=== PATIENT | male | born 1955 | race Caucasian/White ===

== ENCOUNTER 2016-06-11 23:26 | Observation (INO) | payer MEDICARE ==
[2016-06-11 23:53] VITALS: BMI 30.7
--- NOTE | 2016-06-12 00:04 | EDPRACDOC ---
- General Information Stated Complaint: CHEST PAIN Time Seen by Provider: 06/11/16 23:39 Information Source: Patient Mode of Arrival: Ambulance Home Medications: Home Medications Atorvastatin Calcium [Lipitor] 40 mg PO DAILY 10/04/15 Diazepam [Valium] 10 mg PO TID PRN 10/04/15 Furosemide [Lasix] 20 mg PO BID 10/04/15 Insulin Glargine [Lantus] 35 units SQ DAILY 10/04/15 Losartan Potassium 100 mg PO DAILY 10/04/15 Methadone [Dolophine] 10 mg PO .BID-TID 10/04/15 Oxycodone HCl [Oxycodone Immediate Release] 20 mg PO Q6H PRN 10/04/15 Baclofen 10 mg PO TID 10/14/15 Ibuprofen Tablet [Motrin] 600 mg PO Q8H PRN 10/16/15 Oxycodone Immediate Release [Oxycodone Immediate Release (OxyIR)] 5 mg PO Q4H PRN 10/16/15 Promethazine HCl [Phenergan] 12.5 mg PO Q6H PRN 10/16/15 Allergies/Adverse Reactions: Allergies Allergy/AdvReac Type Severity Reaction Status Date / Time codeine Allergy Difficulty Verified 10/16/15 09:07 Breathing - History of Present Illness Onset: 1 hour HPI: PALPITATIONS, HEART BEATING HARD, MILD SHORTNESS OF BREATH, MILD CHEST DISCOMFORT ASSOCIATED WITH INTENSE DIAPHORESIS LASTED APPROXIMATELY 30 MINUTES RESOLVED WITH TAKING 4 BABY ASPIRIN PRIOR TO ARRIVAL. THERE HAD THIS OCCUR BEFORE. PATIENT HAS HAD A SEVERAL MONTH HISTORY OF EPIGASTRIC DISCOMFORT ASSOCIATED WITH NAUSEA WITHOUT VOMITING AND FEELING HIS HEART BEAT IN HIS ABDOMEN WELL. NO ALLEVIATING OR AGGRAVATING FACTORS. ED Past Medical History - History Reviewed Yes Nurses notes reviewed and agree except as marked - Patient Medical History Cardiac History: Reports: Hypertension, Hypercholesterolemia Psychological History: Reports: Depression, Anxiety. Denies: Bipolar Disorder Systemic History: Reports: Diabetes. Denies: Anemia Surgical History: Reports: Hernia Surgery - Family Medical History Reports: Diabetes (SIBLINGS-ALL,PARENTS), Cancer (MOM-UNKNOWN KIND,GDAD-COLON, AUNT-OVARIAN), Cardiac Disorders (GFATHER-CHF). Denies: Hypertension, Stroke - Social Medical History Smoking Status: Never smoker ETOH: None Substance Abuse: None Lives With: Family Lives In: Home EDM Review of Systems - Review of Systems Psychiatric: Other (SIGNIFICANT PSYCHOSOCIAL STRESS AT HOME.) - Physical Exam Constitutional: Alert (Awake), No apparent distress Oriented to: Time, Person, Place Last recorded Vital Signs: Last Vital Signs Temp 97.5 F 06/11/16 23:43 Pulse 86 06/11/16 23:43 Resp 20 06/11/16 23:43 BP 154/72 06/11/16 23:43 Pulse Ox 96 06/11/16 23:43 Oxygen Pulse Oxygen Saturation 96 O2 Device Room Air Oxygen Flow Rate Fraction of Inspired Oxygen ( FIO2) - HEENT Head: Normal ( normocephalic) Eye Exam: Normal (PERRL, EOMI, Sclera white) Oropharynx: Normal (Pharynx:Moist without exudate,Gums-no swelling) Tympanic Membrane: Normal ENT EAC: Normal TMJ: Normal Nose: No Symptoms Reported (septum midline) Neck: Normal (FROM, trachea at midline) - Respiratory/Cardiovascular Respiratory: Normal - CTA (BBS clear to auscultation without adventitious sounds ) Cardiovascular: Normal (RRR without murmur, gallop or rub) - GI Auscultation: Normal (NABS) Palpation: Normal (Soft,No rebound or guarding, non distended) Tenderness: Non tender Jha's Sign: Negative - Musculoskeletal Back: Normal (Non-Tender) Extremities: Normal (Normal tone, Pulses 2+ No cyanosis or edema, FROM) - Integumentary Skin: Normal, Warm, Dry Lymphatics: Normal (no adenopathy) - Neurologic Memory Impaired: Normal Motor Function: Normal (Normal tone, Pulses 2+ No cyanosis or edema, FROM) Cranial Nerve: Normal (CN II-X11 intact sensation, strength 5/5) Cerebellar: Normal Mood Description: Normal Perception: Normal ED Chest Pain Exam - Respiratory/Cardiovascular Respiratory: Normal - CTA (clear to auscultation without adventitious sounds) Cardiovascular/Chest: Normal (RRR without murmur, gallop or rub) Radial Pulse: Normal Femoral Pulse: Normal Pedal Pulse: Normal Carotid Arteries: Normal Edema: 5 Chest Palpation: Normal (No chest tenderness) - Action Patient received Aspirin within last 24 hours?: Yes ASA given in the ED: No Aspirin therapy held due to: Other-specify below* (PT HAD GROUP PRESIDENT) - Results 06/11/16 23:35 06/12/16 01:55 - EKG EKG #1 EKG Time: 23:32 -: Yes EKG interpreted by me Rate: bpm: 86 [place]: Normal Rhythm: NSR Block: None Hypertrophy: None ST: Normal - Diagnostic Imaging Chest Image interpreted by: Radiologist Patient Name: ALLI CAPPS JR LOC: ED : 1955 AGE: 61 Order Date:06/11/16 Date of Service:05/16 Report # [id number] Ord Physician: Miladis Matos MD Exam # [id number] Emergency Physician: Miladis Matos MD Exam(s): [id number] RAD/DG CHEST PORTABLE CLINICAL DATA: Sudden onset of chest pain. Nausea and diaphoresis. EXAM: PORTABLE CHEST 1 VIEW COMPARISON: 02/24/2016 FINDINGS: The cardiomediastinal contours are normal. Suspect mild hyperinflation. Pulmonary vasculature is normal. No consolidation, pleural effusion, or pneumothorax. No acute osseous abnormalities are seen. IMPRESSION: Mild hyperinflation suspected. No localizing process. Electronically Signed By: Deborah Villanueva M.D. On: 06/12/2016 01:03 Electronically Signed By: Deborah Villanueva MD Electronically Signed Date/Time: Dictate Date/Time: 06/12/16100 Technologist: Donna Miller Transcribed By: Sherif Transcribed Date/Time: 06/12/16102 - Departure Disposition: Admit IP To This Hospital Condition: Stable Final Diagnosis: Chest pain Instructions: Chest Pain (ED), Chest Wall Pain Decision to Admit Time: 02:51 Decision to admit date: 06/12/16 Decision to admit: from ED - Physician Consulted Hospitalist Time Called: 02:51 Provider Called: Daniele Mckeon Time Station Chief Returned Call: 02:51
[2016-06-12 00:12] LABS: AUTOMATED BASOPHIL 0.7 % (0-2); AUTOMATED EOSINOPHIL 1.2 % (0-5); AUTOMATED LYMPH 40.1 % (17-44); MPV 8.1 fL (7.4-10.4)
[2016-06-12 00:21] LABS: PT-INR 1.1
--- NOTE | 2016-06-12 01:06 | DIRPT ---
CLINICAL DATA: Sudden onset of chest pain. Nausea and diaphoresis. EXAM: PORTABLE CHEST 1 VIEW COMPARISON: 02/24/2016 FINDINGS: The cardiomediastinal contours are normal. Suspect mild hyperinflation. Pulmonary vasculature is normal. No consolidation, pleural effusion, or pneumothorax. No acute osseous abnormalities are seen. IMPRESSION: Mild hyperinflation suspected. No localizing process. Electronically Signed By: Deborah Villanueva M.D. On: 06/12/2016 01:03
[2016-06-12 02:14] LABS: BLOOD UREA NITROGEN 20 MG/DL (9-20); CALC CORRECTED 9.1 MG/DL (8.4-10.2); CALCIUM 8.8 MG/DL (8.4-10.2); CALCULATED OSMOLALITY 274 MOs/Kg (270-290); CHLORIDE 102 mEq/L (98-107); GLUCOSE 91 MG/DL (70-99); SODIUM LEVEL 141 mEq/L (137-146); TOTAL PROTEIN 6.6 G/DL (6.3-8.2)
[2016-06-12] MEDS ORDERED: Enoxaparin 1 mg per kg per dose SQ ONE (02:47)
[2016-06-12] MEDS ORDERED: ENOXAPARIN 100 MG PFS SQ ONE (02:52)
[2016-06-12] MEDS ORDERED: NITROGLYCERINE 0.4 MG TAB SL PRN ×2 (05:18→07:37)
[2016-06-12] MEDS ORDERED: MORPHINE 2 MG/ML INJECTION IV PRN ×2 (05:18→07:37)
--- NOTE | 2016-06-12 05:32 | HISTPHYS ---
- Chief Complaint chest pain - History of Present Illness PRIMARY CARE PROVIDER: Dr. Sinclair HPI: The patient is a 61 yo man who presents with fast heart beating, epigastric pain , and chest pressure. Last night had profuse diaphoresis, chest pounding and called EMS. Onset: Has had one month of pulse beating hard, nausea, chest pressure, but last night had severe episode, with severe heart pounding, chest pain/pounding, and massive diaphoresis. Duration: intermittent. Location: Left chest. Radiation: none. Character: up to 8/10, pounding pressure. Alleviated by: Nothing. Exacerbated by: Nothing. Associated Symptoms: Diaphoresis frequently over the last month. Started after breaking his ribs. Palpitations. Nausea, epigastric abdominal pain intermittent. Epigastric and LUQ pain is burning and dull, intermittent, and "Like it's rolling." Constipation chronic. No vomiting, diarrhea, or bloody stool. Bilateral lower extremity weakness and neuropathy is worsening. Treatments: none at home except usual medications. PMH: HTN Hyperlipidemia Diabetes CMT SOC: Never smoked FAM: Mother: heart disease. GF: colon cancer GM: brain aneurysm - Medical History Cardiac History: Reports: Hypertension, Hypercholesterolemia Musculoskeletal History: Reports: Arthritis (chronic pain), Other (CHARCOT-JAMIE -TOOTH neuropathy) Systemic History: Reports: Diabetes. Denies: Anemia Psychological History: Reports: Depression, Anxiety. Denies: Bipolar Disorder - Surgical History Reports: Hernia Surgery - Medictions/Allergies Allergies codeine Allergy (Verified 10/16/15 09:07) Difficulty Breathing Current Medication List: Reviewed Home Medications Atorvastatin Calcium [Lipitor] 40 mg PO DAILY 10/04/15 Diazepam [Valium] 10 mg PO TID PRN 10/04/15 Furosemide [Lasix] 20 mg PO BID 10/04/15 Insulin Glargine [Lantus] 35 units SQ DAILY 10/04/15 Losartan Potassium 100 mg PO DAILY 10/04/15 Methadone [Dolophine] 10 mg PO .BID-TID 10/04/15 Oxycodone HCl [Oxycodone Immediate Release] 20 mg PO Q6H PRN 10/04/15 Baclofen 10 mg PO TID 10/14/15 Ibuprofen Tablet [Motrin] 600 mg PO Q8H PRN 10/16/15 Oxycodone Immediate Release [Oxycodone Immediate Release (OxyIR)] 5 mg PO Q4H PRN 10/16/15 Promethazine HCl [Phenergan] 12.5 mg PO Q6H PRN 10/16/15 - Family History Reports: Diabetes (SIBLINGS-ALL,PARENTS), Cancer (MOM-UNKNOWN KIND,GDAD-COLON, AUNT-OVARIAN), Cardiac Disorders (GFATHER-CHF. Mother: heart disease.). Denies : Hypertension, Stroke FAM: Mother: heart disease. GF: colon cancer GM: brain aneurysm - Social History Smoking Status: Never smoker Social History: Denies: Alcohol Use, Substance Use Disorder - Review of Systems GENERAL: No Fever, chills. Positive for diaphoresis. Positive for fatigue/ malaise. HEENT: No ear pain or discharge. No nasal discharge or bleeding. No throat pain or swelling. No eye pain or eye redness. RESPIRATORY: No cough, wheezing, or shortness of breath. CARDIOVASCULAR: Chest pain and palpitations. GI: Nausea, epigastric abdominal pain intermittent. Epigastric and LUQ pain is burning and dull, intermittent, and "Like it's rolling." Constipation chronic. No vomiting, diarrhea, or bloody stool. NEUROLOGICAL: No headache or new focal weakness. INTEGUMENT: no rashes, itching, or lesions. LYMPHATIC SYSTEM: no lymph node swelling or pain. MUSCULOSKELETAL: no new pain or joint swelling. GENITOURINARY: No dysuria or hematuria. ENDOCRINE: No polyuria or polydipsia. HEME: No chronic anemia, bleeding, or easy bruising. - Physical Exam Vital Signs: Initial Vitals Temperature 97.5 F 06/11/16 23:43 Pulse Rate 86 06/11/16 23:43 Respiratory Rate 20 06/11/16 23:43 Blood Pressure 154/72 06/11/16 23:43 Pulse Oxygen Saturation 96 06/11/16 23:43 - Lab Results Laboratory Tests 06/11/16 06/11/16 06/11/16 23:35 23:35 23:35 WBC 7.0 RBC 4.28 L Hgb 13.5 L Hct 38.6 L MCV 90 MCH 31.5 MCHC 35.0 RDW 12.7 Plt Count 204 MPV 8.1 Neut % (Auto) 50.0 Lymph % (Auto) 40.1 [place] % (Auto) 8.0 Eos % (Auto) 1.2 Baso % (Auto) 0.7 Absolute Neuts (auto) 3.50 Absolute Lymphs (auto) 2.80 PT 11.8 H INR 1.1 APTT 24.0 Sodium Potassium Chloride Carbon Dioxide Anion Gap BUN Creatinine Estimated GFR (MDRD) Glucose POC Capillary Glucose Hemoglobin A1c 7.3 H Calculated Osmolality Calcium Corrected Calcium Total Bilirubin AST ALT Alkaline Phosphatase Troponin I Total Protein Albumin Triglycerides Cholesterol LDL Cholesterol, Calc VLDL Cholesterol, Calc HDL Cholesterol Cholesterol/HDL Ratio 06/12/16 06/12/16 06/12/16 01:55 04:30 07:51 WBC RBC Hgb Hct MCV MCH MCHC RDW Plt Count MPV Neut % (Auto) Lymph % (Auto) [place] % (Auto) Eos % (Auto) Baso % (Auto) Absolute Neuts (auto) Absolute Lymphs (auto) PT INR APTT Sodium 141 Potassium 4.1 Chloride 102 Carbon Dioxide 31 Anion Gap 12 BUN 20 Creatinine 1.00 Estimated GFR (MDRD) > 60 Glucose 91 POC Capillary Glucose Hemoglobin A1c Calculated Osmolality 274 Calcium 8.8 Corrected Calcium 9.1 Total Bilirubin 0.6 AST 37 ALT 59 Alkaline Phosphatase 79 Troponin I < 0.01 < 0.01 < 0.01 Total Protein 6.6 Albumin 3.7 Triglycerides Cholesterol LDL Cholesterol, Calc VLDL Cholesterol, Calc HDL Cholesterol Cholesterol/HDL Ratio 06/12/16 07:51 WBC RBC Hgb Hct MCV MCH MCHC RDW Plt Count MPV Neut % (Auto) Lymph % (Auto) [place] % (Auto) Eos % (Auto) Baso % (Auto) Absolute Neuts (auto) Absolute Lymphs (auto) PT INR APTT Sodium Potassium Chloride Carbon Dioxide Anion Gap BUN Creatinine Estimated GFR (MDRD) Glucose POC Capillary Glucose Hemoglobin A1c Calculated Osmolality Calcium Corrected Calcium Total Bilirubin AST ALT Alkaline Phosphatase Troponin I Total Protein Albumin Triglycerides 72 Cholesterol 115 LDL Cholesterol, Calc 51.6 VLDL Cholesterol, Calc 14.4 HDL Cholesterol 49.0 Cholesterol/HDL Ratio 2.3 - Diagnostic Findings EK bpm. Normal sinus rhythm. Reviewed EKG personally. Chest x-ray, viewed personally: EXAM: PORTABLE CHEST 1 VIEW COMPARISON: 02/24/2016 FINDINGS: The cardiomediastinal contours are normal. Suspect mild hyperinflation. Pulmonary vasculature is normal. No consolidation, pleural effusion, or pneumothorax. No acute osseous abnormalities are seen. IMPRESSION: Mild hyperinflation suspected. No localizing process. - Assessment (1) Chest pain R07.9 - CHEST PAIN, UNSPECIFIED Acute Present on Admission: Yes Qualifiers: Chest pain type: other chest pain Qualified Code(s): R07.89 - Other chest pain; R07.8 - Other chest pain Intermittent x 1 month but worse overnight. Rule out myocardial infarction. Plan: Obtain cardiac enzymes x 3. Place patient on telemetry. Give patient oxygen, aspirin. Give nitroglycerin, and morphine as needed for chest pain. Give statin. Stress test has been ordered for the morning. Patient has been advised, if the stress test is negative, to follow up with the primary care provider for evaluation of other potential causes of the chest pain. (2) Palpitations R00.2 - PALPITATIONS Acute Present on Admission: Yes Plan: Telemetry. (3) Diaphoresis R61 - GENERALIZED HYPERHIDROSIS Acute Present on Admission: Yes Could be related to ischemia. Plan: Cardiac stress test. (4) Epigastric abdominal pain R10.13 - EPIGASTRIC PAIN Acute Present on Admission: Yes Has been going on for more than a month. Plan: Trial of prn meds. Continue cardiac workup. Follow up with primary care doctor for further evaluation. - Plan Other diagnoses: DM type 2, with hyperglycemia. Plan: Hold oral diabetes medications. Check fingerstick blood sugars q ac and hs. Sliding scale insulin. Ordered A1c and urine microalbumin. Case Care Discussed with: Patient, Nursing Staff
[2016-06-12 06:26] VITALS: TEMP 98.6
[2016-06-12] MEDS ORDERED: ONDANSETRON HCL 4 MG/2 ML VIAL IV PRN (07:37)
[2016-06-12] MEDS ORDERED: ACETAMINOPHEN 325 MG/TAB TABLET PO PRN (07:37)
[2016-06-12] MEDS ORDERED: TEMAZEPAM 15 MG CAP PO PRN (07:37)
[2016-06-12] MEDS ORDERED: ACETAMINOPHEN 325 MG SUPP PR PRN (07:37)
[2016-06-12] MEDS ORDERED: GUAIFEN 100 MG-DEXTROMETH 10 MG PER 5 ML PO PRN (07:37)
[2016-06-12] MEDS ORDERED: BISACODYL 5 MG TAB PO PRN (07:37)
[2016-06-12] MEDS ORDERED: SENNA CONCENTRATE TAB PO PRN (07:37)
[2016-06-12] MEDS ORDERED: Aluminum;Magnesium;Simethicone 30 ML UDC PO PRN (07:37)
[2016-06-12] MEDS ORDERED: SIMETHICONE 80 MG TAB PO PRN (07:37)
[2016-06-12] MEDS ORDERED: BENZONATATE 100 MG PERLES PO PRN (07:37)
[2016-06-12] MEDS ORDERED: Docusate Sodium 100 MG CAP PO PRN (07:37)
[2016-06-12] MEDS ORDERED: PROMETHAZINE 25 MG/ML VIAL IV PRN (07:37)
[2016-06-12] MEDS ORDERED: DEXTROSE 25 GM/50 ML PFS IV PRN (07:41)
[2016-06-12] MEDS ORDERED: GLUCOSE (ORAL GEL) 15 GM TUBE PO PRN (07:41)
[2016-06-12] MEDS ORDERED: GLUCAGON 1 MG VIAL SQ PRN (07:41)
[2016-06-12] MEDS ORDERED: PANTOPRAZOLE 40 MG VIAL IV SCH (08:00)
[2016-06-12] MEDS ORDERED: NS 1,000 ML IV SCH (08:00)
[2016-06-12] MEDS ORDERED: Pharmacy Order Set Alert SCH (08:00)
[2016-06-12 08:32] LABS: LDL (calc.) 51.6 MG/DL (<100); VLDL (calc.) 14.4 MG/DL (5-40)
[2016-06-12] MEDS ORDERED: CARVEDILOL 3.125 MG TAB PO SCH (09:00)
[2016-06-12] MEDS ORDERED: ATORVASTATIN 40 MG TAB PO SCH (09:00)
[2016-06-12] MEDS ORDERED: LOSARTAN POTASSIUM 50 MG TAB PO SCH (09:00)
[2016-06-12] MEDS ORDERED: Non-Formulary Medication ITEM (Losartan Potassium [Losartan Potassium] 100 MG) PO SCH (09:00)
[2016-06-12] MEDS ORDERED: SODIUM CHLORIDE 0.9% 10 ML FLUSH FLUSH ONE (10:00)
[2016-06-12] MEDS ORDERED: REGADENOSON 0.4 MG/5 ML SYRINGE IV ONE (10:00)
[2016-06-12] MEDS ORDERED: Vaccine Screening Complete SCH (10:00)
[2016-06-12] MEDS ORDERED: SESTAMIBI 8 MCI V IV ONE (10:05)
[2016-06-12] MEDS ORDERED: REGULAR INSULIN 100 UNITS/ML - 3 ML VIAL SQ SCH (11:30)
[2016-06-12 12:00] VITALS: BP 160/73
[2016-06-12] MEDS: ASPIRIN 325 MG TAB PO SCH ×2 (12:22→12:25)
[2016-06-12 13:59] VITALS: PULSE 83
--- NOTE | 2016-06-12 14:13 | PCM.DCS92 ---
- Final/Secondary Discharge Diagnosis (1) Chest pain Acute R07.9 - CHEST PAIN, UNSPECIFIED Present on Admission: Yes other chest pain R07.89 - Other chest pain; R07.8 - Other chest pain (2) Diaphoresis Acute R61 - GENERALIZED HYPERHIDROSIS Present on Admission: Yes (3) Epigastric abdominal pain Acute R10.13 - EPIGASTRIC PAIN Present on Admission: Yes Comment: zantac bid (4) Palpitations Acute R00.2 - PALPITATIONS Present on Admission: Yes Discharge Disposition: Home Discharge Condition: Improved Cognitive Discharge Status: Unimpaired Physician Follow up/Referrals: Macarena Sinclair MD [Primary Care Provider] - One Week New Prescriptions: Ranitidine [Zantac] 150 mg PO BID #60 tablet Discharge Home Medication List Atorvastatin Calcium [Lipitor] 40 mg PO HS 10/04/15 [History Confirmed 06/12/16 Last Taken 06/11/16] Furosemide [Lasix] 20 mg PO .BID SEE COMMENTS 10/04/15 [History Confirmed Last Taken 06/11/16] Insulin Glargine [Lantus] 25 units SQ HS 10/04/15 [History Confirmed 06/12/16 Last Taken 06/11/16] Losartan Potassium 100 mg PO QAM 10/04/15 [History Confirmed 06/12/16 Last Taken 06/11/16] Methadone [Dolophine] 10 mg PO BID PRN 10/04/15 [History Confirmed 06/12/16 Last Taken 06/11/16] Baclofen 10 mg PO TID 10/14/15 [History Confirmed 06/12/16 Last Taken 06/11/16] Citalopram Hydrobromide [Celexa] 20 mg PO DAILY 06/12/16 [History Confirmed Last Taken 06/11/16] Levofloxacin [Levaquin] 750 mg PO .[id number] 06/12/16 [History Confirmed Last Taken 06/11/16] Oxycodone HCl [Oxycodone Immediate Release] 15 mg PO QID PRN 06/12/16 [History Confirmed 06/12/16 Last Taken 06/11/16] Ranitidine [Zantac] 150 mg PO BID #60 tablet 06/12/16 [Rx Last Taken Unknown] 06/11/16 23:35 06/12/16 01:55 Laboratory Results - last 24 hr 06/11/16 06/11/16 06/11/16 23:35 23:35 23:35 WBC 7.0 RBC 4.28 L Hgb 13.5 L Hct 38.6 L MCV 90 MCH 31.5 MCHC 35.0 RDW 12.7 Plt Count 204 MPV 8.1 Neut % (Auto) 50.0 Lymph % (Auto) 40.1 [place] % (Auto) 8.0 Eos % (Auto) 1.2 Baso % (Auto) 0.7 Absolute Neuts (auto) 3.50 Absolute Lymphs (auto) 2.80 PT 11.8 H INR 1.1 APTT 24.0 Sodium Potassium Chloride Carbon Dioxide Anion Gap BUN Creatinine Estimated GFR (MDRD) Glucose POC Capillary Glucose Hemoglobin A1c 7.3 H Calculated Osmolality Calcium Corrected Calcium Total Bilirubin AST ALT Alkaline Phosphatase Troponin I Total Protein Albumin Triglycerides Cholesterol LDL Cholesterol, Calc VLDL Cholesterol, Calc HDL Cholesterol Cholesterol/HDL Ratio 06/12/16 06/12/16 06/12/16 01:55 04:30 07:51 WBC RBC Hgb Hct MCV MCH MCHC RDW Plt Count MPV Neut % (Auto) Lymph % (Auto) [place] % (Auto) Eos % (Auto) Baso % (Auto) Absolute Neuts (auto) Absolute Lymphs (auto) PT INR APTT Sodium 141 Potassium 4.1 Chloride 102 Carbon Dioxide 31 Anion Gap 12 BUN 20 Creatinine 1.00 Estimated GFR (MDRD) > 60 Glucose 91 POC Capillary Glucose Hemoglobin A1c Calculated Osmolality 274 Calcium 8.8 Corrected Calcium 9.1 Total Bilirubin 0.6 AST 37 ALT 59 Alkaline Phosphatase 79 Troponin I < 0.01 < 0.01 < 0.01 Total Protein 6.6 Albumin 3.7 Triglycerides Cholesterol LDL Cholesterol, Calc VLDL Cholesterol, Calc HDL Cholesterol Cholesterol/HDL Ratio 06/12/16 06/12/16 07:51 11:52 WBC RBC Hgb Hct MCV MCH MCHC RDW Plt Count MPV Neut % (Auto) Lymph % (Auto) [place] % (Auto) Eos % (Auto) Baso % (Auto) Absolute Neuts (auto) Absolute Lymphs (auto) PT INR APTT Sodium Potassium Chloride Carbon Dioxide Anion Gap BUN Creatinine Estimated GFR (MDRD) Glucose POC Capillary Glucose 155 H Hemoglobin A1c Calculated Osmolality Calcium Corrected Calcium Total Bilirubin AST ALT Alkaline Phosphatase Troponin I Total Protein Albumin Triglycerides 72 Cholesterol 115 LDL Cholesterol, Calc 51.6 VLDL Cholesterol, Calc 14.4 HDL Cholesterol 49.0 Cholesterol/HDL Ratio 2.3 O2 Device: Room Air Diet at Discharge: As Tolerated Activity: As Tolerated - DC Summary Notes HPI/Notes: HPI: The patient is a 61 yo man who presents with fast heart beating, epigastric pain , and chest pressure. Last night had profuse diaphoresis, chest pounding and called EMS. Onset: Has had one month of pulse beating hard, nausea, chest pressure, but last night had severe episode, with severe heart pounding, chest pain/pounding, and massive diaphoresis. Duration: intermittent. Location: Left chest. Radiation: none. Character: up to 8/10, pounding pressure. Alleviated by: Nothing. Exacerbated by: Nothing. Associated Symptoms: Diaphoresis frequently over the last month. Started after breaking his ribs. Palpitations. Nausea, epigastric abdominal pain intermittent. Epigastric and LUQ pain is burning and dull, intermittent, and "Like its rolling." Constipation chronic. No vomiting, diarrhea, or bloody stool. Bilateral lower extremity weakness and neuropathy is worsening. Treatments: none at home except usual medications. PMH: HTN Hyperlipidemia Diabetes CMT Hospital Course Note:: Discharge summary on patient named ALLI CAPPS JR admitted to [facility] on 06/12/16 by Daniele Mckeon MD. Date of discharge is same. Admitted w / chest pain and had neg stress test this am. Increase zantac to bid & f/u w/ Dr Sinclair. cc: Dr. Ny Total Time: 37 min Code: Other (236) - Physical Exam Vital Signs: Last Vital Signs Temp 98.6 F 06/12/16 06:25 Pulse 83 06/12/16 13:58 Resp 18 06/12/16 12:00 BP 160/73 06/12/16 12:00 Pulse Ox 95 06/12/16 12:00 Oxygen Pulse Oxygen Saturation 95 O2 Device Room Air Oxygen Flow Rate Fraction of Inspired Oxygen ( FIO2) Constitutional: Alert (Awake), No apparent distress Oriented to: Time, Person, Place - HEENT Head: Normal ( normocephalic) Eye: Normal (PERRL, EOMI, Sclera white) Oropharynx: Normal (Pharynx:Moist without exudate,Gums-no swelling) Tympanic Membrane: Normal ENT EAC: Normal TMJ: Normal Nose: No Symptoms Reported (septum midline) - Respiratory/Cardiovascular Respiratory: Normal - CTA (clear to auscultation without adventitious sounds) Cardiovascular: Normal (RRR without murmur, gallop or rub) - GI Auscultation: Normal (NABS) Palpation: Normal (Soft,No rebound or guarding, non distended) Tenderness: Non tender Jha's Sign: Negative - Musculoskeletal Back: Normal (Non-Tender) Extremities: Normal (Normal tone, Pulses 2+ No cyanosis or edema, FROM) - Integumentary Skin: Normal, Warm, Dry Lymphatics: Normal (no adenopathy) - Neurologic Memory Impaired: Normal Cerebellar: Normal Mood Description: Normal Perception: Normal
[2016-06-12] MEDS ORDERED: ENOXAPARIN 40 MG/0.4 ML PFS SQ SCH (18:00)
--- NOTE | 2016-06-12 23:44 | CAPUCARD ---
LEXISCAN SESTAMIBI REST STRESS SCAN. INDICATION: Chest pain. The patient's baseline EKG reveals sinus rhythm, nonspecific ST-T changes. Resting heart rate 87, blood pressure 140/84 mmHg. The patient received intravenous Lexiscan per protocol. During the test, the patient did not experience any significant symptoms. There were nondiagnostic EKG changes and no arrhythmias. Cardiolite images do not reveal any evidence of ischemia. Normal ejection fraction. IMPRESSION: 1. No evidence of ischemia on the scan. 2. Normal ejection fraction. 3. No significant symptoms, EKG changes, or arrhythmias occurred. [id number]
[2016-06-13] MEDS ORDERED: FLU VACCINE (Afluria) 0.5 ML DOSE IM ONE (08:00)
== END 2016-06-12 15:05 | disposition other institution (70) ==
LOC: ED 23:26 → EDINP 06-12 05:18
PROVIDERS: ADMIT Internal Medicine; ATTEND Internal Medicine
DX: R07.9 Chest pain, unspecified (principal); R61 Generalized hyperhidrosis; R10.13 Epigastric pain; R00.2 Palpitations; E11.65 Type 2 diabetes mellitus with hyperglycemia; I10 Essential (primary) hypertension; E78.00 Pure hypercholesterolemia, unspecified; F32.9 Major depressive disorder, single episode, unspecified; F41.9 Anxiety disorder, unspecified; G89.29 Other chronic pain; G60.0 Hereditary motor and sensory neuropathy; Z79.4 Long term (current) use of insulin; Z79.899 Other long term (current) drug therapy
CPT/HCPCS: 36415; 71010; 78452; 80053; 80061; 82962; 83036; 84484; 85025; 85610; 85730; 93005; 93017; 96372; 99285; A4216; A9270; A9500; G0378; J1650; J2785; J3490; S0164